=== PATIENT | female | born 1990 | race African-American/Black ===

== ENCOUNTER 2017-11-07 20:18 | Emergency (ER) | payer MEDICAID ==
[~2017-11-07] VITALS: Ht 172.7 cm; Wt 105.0 kg
[2017-11-07] MEDS ORDERED: ALBUTEROL (0.083%) 2.5MG/3ML NEB HHN STA (20:59)
[2017-11-07] MEDS ORDERED: IPRATROPIUM BROMIDE (0.02%) 0.5MG/2.5ML NEB HHN STA (20:59)
[2017-11-07] MEDS ORDERED: METHYLPREDNISOLONE SOD SUCC 125 MG/2 ML VIAL IV STA (20:59)
[2017-11-07 22:47] VITALS: BP 119/65
== END 2017-11-07 23:08 | disposition home or self-care (01) ==
LOC: ER 20:36
DX: J45.901 Unspecified asthma with (acute) exacerbation (principal)
CPT/HCPCS: 71045; 81025; 94640; 96374; 99284; J2930; J7611; Z7610

== ENCOUNTER 2017-12-11 02:19 | Emergency (ER) | payer MEDICAID ==
[~2017-12-11] VITALS: Ht 170.2 cm; Wt 86.0 kg
[2017-12-11] MEDS ORDERED: SODIUM CHLORIDE 0.9% 1,000 ML IV ONE (03:56)
[2017-12-11] MEDS ORDERED: KETOROLAC 30MG/ML VIAL IV STA (04:06)
[2017-12-11 04:35] LABS: CLARITY URINE CLEAR (CLEAR); COLOR URINE YELLOW (YELLOW); KETONES URINE NEGATIVE (NEGATIVE); LEUKOCYTE ESTERASE URINE NEGATIVE (NEGATIVE); NITRITE URINE NEGATIVE (NEGATIVE); OCCULT BLOOD URINE 1+ (NEGATIVE); PROTEIN URINE NEGATIVE (NEGATIVE); SPECIFIC GRAVITY URINE 1.014 (1.005-1.030); UROBILINOGEN URINE 0.2 E.U./dL (0.2-1.0)
[2017-12-11 04:35] LABS: BASOPHILS % 0.5 % (0.0-2.0); EOSINOPHILS % 0.3 % (0.0-5.0); HEMATOCRIT. 37.4 % (36.0-48.0); HEMOGLOBIN. 12.6 g/dL (12.0-16.0); LYMPHOCYTES % 37.8 % (20.0-50.0); MEAN CORPUSCULAR HEMOGLOBIN 28.6 pg (28.0-32.0); MEAN CORPUSCULAR VOLUME 84.8 fL (81.0-99.0); MEAN PLATELET VOLUME 8.5 fl (7.4-10.4); MONOCYTES % 7.5 % (2.0-8.0); NEUTROPHILS % 53.9 % (40.0-76.0); PLATELET 310 x1000/uL (130-400); RED BLOOD CELL COUNT 4.41 mill/uL (4.2-5.4); RED CELL DISTRIBUTION WIDTH 12.9 % (11.6-14.6)
[2017-12-11 04:41] LABS: CHLORIDE 113 mEq/L (98-107)
[2017-12-11 04:43] LABS: PROTHROMBIN TIME 10.6 sec (9.4-11.6)
[2017-12-11 04:47] LABS: ETHANOL BLOOD < 10 mg/dL
[2017-12-11 04:50] LABS: CREATINE KINASE 167 IU/L (26-192)
[2017-12-11 04:51] LABS: AMMONIA 31 uMol/L (<32)
[2017-12-11 05:00] LABS: CARBAMAZEPINE < 0.5 ug/mL (4-12); PHENOBARBITAL < 2.1 ug/mL (15.0-40.0); VALPROIC ACID < 3.0 ug/mL (50-100)
[2017-12-11 05:21] LABS: *AMPHETAMINES SCREEN URINE NEGATIVE (NEGATIVE)
[2017-12-11 05:22] LABS: *BARBITURATES SCREEN URINE NEGATIVE (NEGATIVE); *BENZODIAZEPINES SCREEN URINE NEGATIVE (NEGATIVE); *COCAINE SCREEN URINE NEGATIVE (NEGATIVE); METHADONE URINE SCREEN NEGATIVE (NEGATIVE); OPIATES URINE SCREEN NEGATIVE (NEGATIVE); PHENCYCLIDINE URINE SCREEN NEGATIVE (NEGATIVE)
[2017-12-11 05:23] LABS: CANNABINOID URINE SCREEN NEGATIVE (NEGATIVE)
[2017-12-11] MEDS ORDERED: CEFTRIAXONE 1 G PREMIX 50 ML IV NR (05:30)
[2017-12-11] MEDS ORDERED: PHENYTOIN SODIUM 1,000 MG in SODIUM CHLORIDE 0.9% 100 ML IV NR (05:30)
[2017-12-11 07:35] VITALS: BP 119/73
== END 2017-12-11 07:40 | disposition home or self-care (01) ==
LOC: ER 02:19
DX: R56.9 Unspecified convulsions (principal); N39.0 Urinary tract infection, site not specified; J45.909 Unspecified asthma, uncomplicated; Z91.14 Patient's other noncompliance with medication regimen; Z79.899 Other long term (current) drug therapy
CPT/HCPCS: 36415; 70450; 71045; 80053; 80156; 80165; 80184; 80185; 80305; 81003; 81025; 82140; 82550; 83605; 83690; 83880; 84443; 84484; 85025; 85610; 87086; 93005; 96361; 96365; 96367; 96375; 99285; G0482; J0696; J1165; J1885; J7030; J7050

== ENCOUNTER 2018-01-05 20:09 | Emergency (ER) | payer MEDICAID ==
[~2018-01-05] VITALS: Ht 172.7 cm; Wt 84.0 kg
[2018-01-05] MEDS ORDERED: IBUPROFEN 600MG TABLET PO ONE (20:45)
[2018-01-05] MEDS ORDERED: ACETAMINOPHEN WITH CODEINE 300/30MG TABLET PO ONE (21:45)
[2018-01-05] MEDS ORDERED: PHENYTOIN SODIUM 1,000 MG in SODIUM CHLORIDE 0.9% 100 ML IV ONE (21:45)
[2018-01-06 00:19] VITALS: BP 122/75
== END 2018-01-06 00:20 | disposition home or self-care (01) ==
LOC: ER 20:22
DX: G40.909 Epilepsy, unspecified, not intractable, without status epilepticus (principal); J45.909 Unspecified asthma, uncomplicated
CPT/HCPCS: 36415; 80185; 96365; 99284; J1165; J7030; Z7610; J7050

== ENCOUNTER 2018-07-06 20:13 | Emergency (ER) | payer MEDICAID ==
[~2018-07-06] VITALS: Ht 167.6 cm; Wt 84.0 kg
[2018-07-06 20:17] VITALS: BP 110/70
== END 2018-07-06 23:46 | disposition left against medical advice (07) ==
LOC: ER 20:13
DX: R05 Cough (principal); Z53.21 Procedure and treatment not carried out due to patient leaving prior to being seen by health care provider

== ENCOUNTER 2018-07-08 19:15 | Emergency (ER) | payer MEDICAID ==
[~2018-07-08] VITALS: Ht 167.6 cm; Wt 100.0 kg
[2018-07-08] MEDS ORDERED: METHYLPREDNISOLONE SOD SUCC 125 MG/2 ML VIAL IV STA (22:20)
[2018-07-08] MEDS ORDERED: IPRATROPIUM BROMIDE (0.02%) 0.5MG/2.5ML NEB HHN STA (22:20)
[2018-07-08] MEDS: ALBUTEROL (0.083%) 2.5MG/3ML NEB HHN SCH ×3 (22:40→23:40)
[2018-07-08 23:35] LABS: CHLORIDE 108 mEq/L (98-107)
[2018-07-08 23:39] LABS: BASOPHILS % 0.2 % (0.0-2.0); EOSINOPHILS % 1.3 % (0.0-5.0); HEMOGLOBIN. 12.1 g/dL (12.0-16.0); LYMPHOCYTES % 44.7 % (20.0-50.0); MEAN CORPUSCULAR HEMOGLOBIN 28.7 pg (28.0-32.0); MEAN CORPUSCULAR VOLUME 85.8 fL (81.0-99.0); MEAN PLATELET VOLUME 8.5 fl (7.4-10.4); MONOCYTES % 7.7 % (2.0-8.0); NEUTROPHILS % 46.1 % (40.0-76.0); PLATELET 302 x1000/uL (130-400); RED CELL DISTRIBUTION WIDTH 13.1 % (11.6-14.6)
[2018-07-09] MEDS ORDERED: PHENYTOIN SODIUM EXTENDED 100MG CAPSULE PO ONE
[2018-07-09 00:14] LABS: HCG SCREEN NEGATIVE
[2018-07-09] MEDS ORDERED: IBUPROFEN 400MG TABLET PO ONE (00:30)
[2018-07-09 01:41] VITALS: BP 107/72
== END 2018-07-09 01:54 | disposition home or self-care (01) ==
LOC: ER 19:15
DX: R51 Headache (principal); J45.901 Unspecified asthma with (acute) exacerbation; R89.2 Abnormal level of other drugs, medicaments and biological substances in specimens from other organs, systems and tissues; R56.9 Unspecified convulsions; R40.4 Transient alteration of awareness; R11.10 Vomiting, unspecified; X58.XXXA Exposure to other specified factors, initial encounter; Y93.K1 Activity, walking an animal; Y92.89 Other specified places as the place of occurrence of the external cause; Y99.8 Other external cause status
CPT/HCPCS: 36415; 70450; 71045; 80053; 80185; 84484; 84703; 85025; 93005; 94640; 96374; 99285; J2930; J7611

== ENCOUNTER 2021-05-14 13:05 | Emergency (ER) | payer MEDICAID ==
[~2021-05-14] VITALS: Ht 170.2 cm; Wt 82.0 kg
[2021-05-14] MEDS ORDERED: LORAZEPAM 1MG TABLET PO ONE (14:15)
[2021-05-14] MEDS ORDERED: ACETAMINOPHEN 325MG TABLET PO ONE (14:15)
[2021-05-14] MEDS ORDERED: IBUP-2029 MT (14:53)
[2021-05-14] MEDS ORDERED: HYDR-3782 MT (14:53)
[2021-05-14 15:07] LABS: *AMPHETAMINES SCREEN URINE NEGATIVE (NEGATIVE); *BARBITURATES SCREEN URINE NEGATIVE (NEGATIVE); *BENZODIAZEPINES SCREEN URINE NEGATIVE (NEGATIVE); *COCAINE SCREEN URINE NEGATIVE (NEGATIVE)
[2021-05-14 15:08] LABS: METHADONE URINE SCREEN NEGATIVE (NEGATIVE); OPIATES URINE SCREEN NEGATIVE (NEGATIVE); PHENCYCLIDINE URINE SCREEN NEGATIVE (NEGATIVE)
[2021-05-14 15:09] LABS: CANNABINOID URINE SCREEN PRESUMTIVE POSITIVE (NEGATIVE)
[2021-05-14 15:59] VITALS: BP 132/76
== END 2021-05-14 16:07 | disposition home or self-care (01) ==
LOC: ER 13:05
DX: R07.89 Other chest pain (principal); J04.0 Acute laryngitis; F41.0 Panic disorder [episodic paroxysmal anxiety]; J45.909 Unspecified asthma, uncomplicated; Z20.822 Contact with and (suspected) exposure to COVID-19; Z13.9 Encounter for screening, unspecified; Z86.59 Personal history of other mental and behavioral disorders
CPT/HCPCS: 71045; 80305; 81025; 87426; 99284

== ENCOUNTER 2021-11-13 01:43 | Emergency (ER) | payer MEDICAID ==
[~2021-11-13] VITALS: Ht 167.6 cm; Wt 78.0 kg
[~2021-11-13 01:43] MED LIST: HYDR-3782 MT; IBUP-2029 MT
[2021-11-13] MEDS ORDERED: ACETAMINOPHEN 500MG TABLET PO ONE (03:00)
[2021-11-13] MEDS ORDERED: SODIUM CHLORIDE 0.9% 500 ML IV ONE (03:45)
[2021-11-13 04:06] LABS: CHLORIDE 109 mEq/L (98-107)
[2021-11-13 04:13] LABS: BASOPHILS % 0.2 % (0.0-2.0); EOSINOPHILS % 0.5 % (0.0-5.0); HEMATOCRIT. 39.3 % (36.0-48.0); HEMOGLOBIN. 13.5 g/dL (12.0-16.0); LYMPHOCYTES % 34.9 % (20.0-50.0); MEAN CORPUSCULAR HEMOGLOBIN 30.2 pg (28.0-32.0); MEAN CORPUSCULAR VOLUME 88.2 fL (81.0-99.0); MONOCYTES % 8.7 % (2.0-8.0); NEUTROPHILS % 55.7 % (40.0-76.0); PLATELET 218 x1000/uL (130-400); RED BLOOD CELL COUNT 4.46 mill/uL (4.2-5.4); RED CELL DISTRIBUTION WIDTH 12.4 % (11.6-14.6)
[2021-11-13 04:28] LABS: CLARITY URINE CLEAR (CLEAR); COLOR URINE YELLOW (YELLOW); KETONES URINE NEGATIVE (NEGATIVE); LEUKOCYTE ESTERASE URINE NEGATIVE (NEGATIVE); NITRITE URINE NEGATIVE (NEGATIVE); OCCULT BLOOD URINE NEGATIVE (NEGATIVE); PROTEIN URINE NEGATIVE (NEGATIVE); SPECIFIC GRAVITY URINE 1.018 (1.005-1.030); UROBILINOGEN URINE 0.2 E.U./dL (0.2-1.0)
[2021-11-13] MEDS ORDERED: TOPUD MT (05:07)
[2021-11-13 05:20] VITALS: BP 126/72
== END 2021-11-13 05:20 | disposition home or self-care (01) ==
LOC: ER 01:43
DX: O26.891 Other specified pregnancy related conditions, first trimester (principal); O99.351 Diseases of the nervous system complicating pregnancy, first trimester; Z3A.01 Less than 8 weeks gestation of pregnancy
CPT/HCPCS: 36415; 76801; 76817; 80053; 81003; 85025; 96360; 99284; J7030

== ENCOUNTER 2021-11-18 18:24 | Emergency (ER) | payer MEDICAID ==
[~2021-11-18] VITALS: Ht 167.6 cm; Wt 79.0 kg
[~2021-11-18 18:24] MED LIST changes: +TOPUD MT
[2021-11-18 18:28] VITALS: BP 112/75
[2021-11-18] MEDS ORDERED: SODIUM CHLORIDE 0.9% 1,000 ML IV ONE (18:45)
[2021-11-18 19:38] LABS: BASOPHILS % 0.3 % (0.0-2.0); EOSINOPHILS % 0.3 % (0.0-5.0); HEMATOCRIT. 38.5 % (36.0-48.0); HEMOGLOBIN. 12.9 g/dL (12.0-16.0); LYMPHOCYTES % 44.8 % (20.0-50.0); MEAN CORPUSCULAR VOLUME 89.4 fL (81.0-99.0); NEUTROPHILS % 44.6 % (40.0-76.0); PLATELET 241 x1000/uL (130-400); RED BLOOD CELL COUNT 4.31 mill/uL (4.2-5.4); RED CELL DISTRIBUTION WIDTH 12.3 % (11.6-14.6)
[2021-11-18 19:43] LABS: CHLORIDE 106 mEq/L (98-107)
[2021-11-18 20:10] LABS: B-HCG QUANTITATIVE 33168 mIU/mL (<3)
== END 2021-11-18 22:33 | disposition home or self-care (01) ==
LOC: ER 18:24
DX: O26.891 Other specified pregnancy related conditions, first trimester (principal); E86.0 Dehydration; O20.8 Other hemorrhage in early pregnancy; O34.81 Maternal care for other abnormalities of pelvic organs, first trimester; N83.202 Unspecified ovarian cyst, left side; O99.351 Diseases of the nervous system complicating pregnancy, first trimester; Z3A.01 Less than 8 weeks gestation of pregnancy
CPT/HCPCS: 36415; 76801; 76817; 80053; 84702; 85025; 93005; 96360; 99285; J7030